=== PATIENT | male | born 1950 | race Caucasian/White ===

== ENCOUNTER 2016-07-27 06:26 | Day surgery (SDC) | payer MEDICARE, BC ==
[2016-07-27] MEDS ORDERED: Lactated Ringers 1,000 ML IV SCH (06:45)
[2016-07-27] MEDS ORDERED: Propofol 200 MG/20 ML SDV IV ONE (08:00)
--- NOTE | 2016-07-27 08:28 | PCM.OPNOTE ---
- General Post-Op/Procedure Note Date of Surgery/Procedure: 07/27/16 Operative Procedure(s): c scope with bx Findings: cecal, ascending colon, rectal polyp sigmoid diverticulosis Pre Op Diagnosis: hx of colon polyp Post-Op Diagnosis: cecal, ascending colon, rectal polyp. sigmoid diverticulosis Anesthesia Technique: MAC Primary Surgeon: Elvin Boyer () Anesthesia Provider: Daniela Ny Pathology: cecal, ascending colon, rectal polyp Complications: None Condition: Good Free Text/Narrative:: see dictation
[2016-07-27 09:38] VITALS: BP 125/71
--- NOTE | 2016-07-27 09:40 | OR ---
DATE OF OPERATION: 07/27/2016 SURGEON: Elvin Boyer MD PROCEDURE PERFORMED: Colonoscopy with cold forceps biopsy. PREOPERATIVE DIAGNOSIS: Personal history of colon polyps. POSTOPERATIVE DIAGNOSIS: Cecal polyp, ascending colon polyp, and rectal polyp. INDICATIONS FOR PROCEDURE: This is a 65-year-old white male, who presents for followup colonoscopy. He has a personal history of colon polyps. He was offered and accepted the same. DESCRIPTION OF OPERATION: After an excellent IV sedation was administered, digital rectal exam was performed. No marked abnormality was noted. Flexible colonoscope was inserted and advanced to the cecum. The prep was excellent. The following findings were noted. In ascending colon and the cecum, a small adenomatous polyp, approximately 5 mm in size, biopsied with cold biopsy forceps and sent for permanent. In the ascending colon, hyperplastic-appearing lesion biopsied and sent for permanent. Transverse colon was unremarkable. Descending colon was unremarkable. The sigmoid demonstrated diffuse diverticulosis, very mild. Rectum, another hyperplastic polyp, approximately 10 cm above the anal verge. This was biopsied with cold biopsy forceps and sent for permanent. Colon was deflated. Scope was removed. The patient tolerated the procedure well and was taken to recovery in good condition. /[id number] /MODL
== END 2016-07-27 09:28 | disposition home or self-care (01) ==
LOC: FB.SDS 06:26
PROVIDERS: ATTEND Surgery
DX: Z12.11 Encounter for screening for malignant neoplasm of colon (principal); D12.0 Benign neoplasm of cecum; K63.5 Polyp of colon; K62.1 Rectal polyp; K57.30 Diverticulosis of large intestine without perforation or abscess without bleeding; K21.9 Gastro-esophageal reflux disease without esophagitis; I10 Essential (primary) hypertension; Z88.0 Allergy status to penicillin; Z79.899 Other long term (current) drug therapy; Z79.82 Long term (current) use of aspirin; E78.5 Hyperlipidemia, unspecified; E55.9 Vitamin D deficiency, unspecified; Z90.49 Acquired absence of other specified parts of digestive tract; Z98.890 Other specified postprocedural states; Z87.891 Personal history of nicotine dependence
CPT/HCPCS: 00810; 45380; 88305; J2704; J7120

== ENCOUNTER 2017-05-22 07:38 | Day surgery (SDC) | payer MEDICARE, BC ==
[2017-05-22] MEDS ORDERED: Lactated Ringers 1,000 ML IV SCH (07:45)
[2017-05-22] MEDS ORDERED: Midazolam 1 MG/ML 2 ML SDV IV ONE (08:30)
[2017-05-22] MEDS ORDERED: Propofol 200 MG/20 ML SDV IV ONE (08:30)
--- NOTE | 2017-05-22 08:50 | PCM.OPNOTE ---
- General Post-Op/Procedure Note Date of Surgery/Procedure: 05/22/17 Operative Procedure(s): c scope with bx Findings: cecal polyp Pre Op Diagnosis: hx of dysplastic polyp of colon Post-Op Diagnosis: cecal polyp Anesthesia Technique: MAC Primary Surgeon: Elvin Boyer Anesthesia Provider: Daniela Ny Pathology: cecal polyp Complications: None Condition: Good Free Text/Narrative:: see dictation
--- NOTE | 2017-05-22 09:25 | OR ---
DATE OF OPERATION: 05/22/2017 SURGEON: Elvin Boyer MD PROCEDURE PERFORMED: Colonoscopy with cold forceps biopsy. PREOPERATIVE DIAGNOSIS: Personal history of dysplastic colon polyp. POSTOPERATIVE DIAGNOSIS: A 2 mm polyp of the cecum. INDICATIONS FOR PROCEDURE: This is a 66-year-old white male who underwent a colonoscopy about 6 months ago, was noted to have a polyp with low-grade dysplasia. A 6-month followup was recommended. He presents now for a followup scope. DESCRIPTION OF PROCEDURE: After an excellent IV sedation was administered, digital rectal exam was performed. No marked abnormality was noted. Flexible colonoscope was inserted and advanced to the cecum without difficulty. The following findings were noted. At the cecum, a small 2 mm lesion was noted, biopsied with cold biopsy forceps. Remainder of the ascending colon was unremarkable. Transverse colon was unremarkable. Descending colon was unremarkable. Sigmoid unremarkable. Rectum and anus unremarkable. Colon was deflated. Scope was removed. The patient tolerated the procedure well, was taken to recovery in good condition. /[id number] /HEIDEL
[2017-05-22 11:43] VITALS: BP 157/81
== END 2017-05-22 09:48 | disposition home or self-care (01) ==
LOC: FB.SDS 07:38
PROVIDERS: ATTEND Surgery
DX: Z12.11 Encounter for screening for malignant neoplasm of colon (principal); K63.5 Polyp of colon; I10 Essential (primary) hypertension; K21.9 Gastro-esophageal reflux disease without esophagitis; Z86.010 Personal history of colon polyps; Z88.0 Allergy status to penicillin; Z79.82 Long term (current) use of aspirin; Z79.899 Other long term (current) drug therapy; E78.5 Hyperlipidemia, unspecified; E55.9 Vitamin D deficiency, unspecified; Z87.891 Personal history of nicotine dependence
CPT/HCPCS: 00811; 45380; 88305; J2250; J2704; J7120

== ENCOUNTER 2018-12-31 16:47 | Emergency (ER) | payer BC, MEDICARE ==
--- NOTE | 2018-12-31 16:51 | EDM.PDOC ---
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 Pt noticed his left distal phalanx is angulated. Excact mech of injury is not known. No active bleed, the nail appears to be fractured next to the nail bed. Pt said, his TD is UPT and due in 5 years. 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 Pt has FROM of his fingers but can not extent the distal phalanx of his right 3rd finger. No N/V/D no C/P no SOB or any other acute med issues. BP 136/68 RR 16 Pulse ox 97% on RA Temp 36.8 Pulse 74 Onset Date: 12/31/18 Onset Time: 16:00 Duration: Minutes: Location: Reports: Upper Extremity, Right (right middle finger) Quality: Reports: Ache, Burning, Dull Severity: Mild Improves with: Reports: Rest Worsens with: Reports: Movement Context: Reports: Trauma (object fell onto his right middle finger. ) Associated Symptoms: Reports: No Other Symptoms - Related Data Allergies Allergy/AdvReac Type Severity Reaction Status Date / Time Penicillins Allergy Cannot Verified 12/31/18 17:26 Remember Home Meds: Home Meds Aspirin [Ecotrin EC] 81 mg PO DAILY 07/26/16 [History] Celecoxib [CeleBREX] 200 mg PO DAILY 07/26/16 [History] Ergocalciferol (Vitamin D2) [Vitamin D2] 2,000 unit PO DAILY 07/26/16 [History] Lisinopril/Hydrochlorothiazide [Lisinopril-Hctz 20-12.5 mg Tab] 1 ea PO DAILY [History] Multivitamin with Minerals [Multiple Vitamin] 1 ea PO DAILY 07/26/16 [History] Alpine-3/DHA/Epa/Fish Oil [Alpine-3 Fish Oil 1,000 MG Sfgl] 1,000 mg PO DAILY [History] Omeprazole 40 mg PO DAILY 07/26/16 [History] Ciprofloxacin [Ciprofloxacin HCl] 500 mg PO BID #20 tab 12/31/18 [Rx] Past Medical History HEENT History: Reports: Impaired Vision Cardiovascular History: Reports: High Cholesterol, Hypertension, Other (See Below) Other Cardiovascular History: VITAMIN D DIFFICIENCY Respiratory History: Reports: Pneumonia, Recurrent, Sleep Apnea, SOB, Other ( See Below) Other Respiratory History: PLEURAL EFFUSION Gastrointestinal History: Reports: Colon Polyp, Diverticulosis, GERD, Other ( See Below) Other Gastrointestinal History: ARNOLD'S ESOPHAGUS WITH ESOPHAGITIS, BILATERAL INGUINAL HERNIA Genitourinary History: Reports: None Musculoskeletal History: Reports: Fracture, Other (See Below) Other Musculoskeletal History: FX RIGHT LEG, DEGENERATIVE JOINT DISEASE, BILATERAL FOOT PAIN, LEFT SHOULDER PAIN, GANGLION CYST Neurological History: Reports: None Psychiatric History: Reports: None Endocrine/Metabolic History: Reports: Obesity/BMI 30+, Vitamin D Deficiency Hematologic History: Reports: None Immunologic History: Reports: None Oncologic (Cancer) History: Reports: None Dermatologic History: Reports: None - Infectious Disease History Infectious Disease History: Reports: Chicken Pox, Measles, Mumps - Past Surgical History Head Surgeries/Procedures: Reports: None HEENT Surgical History: Reports: Adenoidectomy, Naso-Sinus Surgery, Oral Surgery , Tonsillectomy, Other (See Below) Other HEENT Surgeries/Procedures: THROAT AND NASAL RECONSTRUCTION Cardiovascular Surgical History: Reports: None GI Surgical History: Reports: Appendectomy, Colonoscopy, EGD, Hernia, Inguinal, Polypectomy Other GI Surgeries/Procedures: ARNOLD'S ESOPHAGUS, BILATERAL INGUINAL HERNIA Male Surgical History: Reports: None Endocrine Surgical History: Reports: None Neurological Surgical History: Reports: None Musculoskeletal Surgical History: Reports: Arthroscopic Procedure, Carpal Tunnel Other Musculoskeletal Surgeries/Procedures:: ARTHROSCOPIC RIGHT ROTATOR CUFF REPAIR, ARTHRODESIS LEFT SHOULDEr, ORIF OF RIGHT LEG, BILATERAL CARPAL TUNNEL RELEASE Oncologic Surgical History: Reports: None Social & Family History - Caffeine Use Caffeine Use: Reports: Coffee, Soda ED ROS GENERAL - Review of Systems Review Of Systems: See Below Constitutional: Reports: No Symptoms HEENT: Reports: No Symptoms Respiratory: Reports: No Symptoms Cardiovascular: Reports: No Symptoms Endocrine: Reports: No Symptoms GI/Abdominal: Reports: No Symptoms : Reports: No Symptoms Musculoskeletal: Reports: No Symptoms Skin: Reports: Wound (right middle finger) Neurological: Reports: No Symptoms Psychiatric: Reports: No Symptoms Hematologic/Lymphatic: Reports: No Symptoms Immunologic: Reports: No Symptoms ED EXAM, SKIN/RASH Exam: See Below Exam Limited By: No Limitations General Appearance: Alert, WD/WN, Mild Distress Eye Exam: Bilateral Eye: Normal Inspection Ears: Normal External Exam Nose: Normal Inspection Throat/Mouth: Normal Inspection Head: Atraumatic, Normocephalic Neck: Normal Inspection, Supple, Non-Tender Respiratory/Chest: No Respiratory Distress, Lungs Clear, Normal Breath Sounds, Chest Non-Tender Cardiovascular: Normal Peripheral Pulses, Regular Rate, Rhythm Peripheral Pulses: 1+: Brachial (L) GI/Abdominal: Normal Bowel Sounds, Soft, Non-Tender, No Abnormal Bruit, No Mass (Male) Exam: Deferred Rectal (Males) Exam: Deferred Back Exam: Normal Inspection, Full Range of Motion Extremities: No Pedal Edema, Normal Capillary Refill, Limited Range of Motion ( og right finger endphalanx to pain) Neurological: Alert, Oriented, CN II-XII Intact, Normal Cognition, Normal Gait Psychiatric: Normal Affect, Normal Mood Skin: Warm, Dry, Normal Color, No Rash, Other (fracture of proximal nal righ middle finger na) Associated features: Warmth Lymphatic: No Adenopathy Course - Vital Signs Text/Narrative:: 68 y.o.w.m came by himself to the ed after an objet fell onto his right distal 3rd 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 Pt noticed his left distal phalanx is angulated. Excact mech of injury is not known. No active bleed, the nail appears to be fractured next to the nail bed. Pt said, his TD is UPT and due in 5 years. 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 Pt has FROM of his fingers but can not extent the distal phalanx of his right 3rd finger. No N/V/D no C/P no SOB or any other acute med issues. BP 136/68 RR 16 Pulse ox 97% on RA Temp 36.8 Pulse 74 AK: WNWD W M with a right middle finger injury Imaging: impacted transverse/oblique fracture of the distal phalanx of right 3rd finger with dorsal apex angulation Imaging: open Fracture/angulation right distal phalanx of right middle finger with fractured nail. Tx: finger was splinted, Neosporin ointment was applied. Reexam: Improved. Pt stated, he will not f/u with his PMD or Ortho, h will go back to work tomorrow. Plan: D/C'd with instructions Last Recorded V/S: Last Vital Signs Temp 36.3 C 12/31/18 16:50 Pulse 78 12/31/18 16:55 Resp 17 12/31/18 16:55 BP 136/68 12/31/18 16:55 Pulse Ox 97 12/31/18 16:55 - Orders/Labs/Meds Orders: Active Orders 24 hr Category Date Time Status Fingers Third Digit Rt F7 [CR] Stat Exams 12/31/18 16:51 Taken Departure - Departure Time of Disposition: 17:21 Disposition: Home, Self-Care 01 Condition: Good Clinical Impression: Finger fracture, right Qualifiers: Encounter type: initial encounter Finger: middle finger Fracture type: open Phalanx: distal Fracture alignment: displaced Qualified Code(s): S62.632B - Displaced fracture of distal phalanx of right middle finger, initial encounter for open fracture - Discharge Information Prescriptions: Ciprofloxacin [Ciprofloxacin HCl] 500 mg PO BID #20 tab Instructions: Wound Care, Adult, Cast or Splint Care, Adult Referrals: Amador Wilkinson MD [Primary Care Provider] - Mariusz Collazo DO [Physician] - Forms: ED Department Discharge Additional Instructions: Please take Tylenol for pain, please leave the splint in place till see by your orthopedic or hand surgeon in next few days, Please come back if your symptoms get worse acutely - My Orders Last 24 Hours: My Active Orders 12/31/18 16:51 Fingers Third Digit Rt F7 [CR] Stat - Assessment/Plan Last 24 Hours: My Active Orders 12/31/18 16:51 Fingers Third Digit Rt F7 [CR] Stat
[2018-12-31 16:57] VITALS: BP 136/68
== END 2018-12-31 17:35 | disposition home or self-care (01) ==
LOC: FB.ED 16:47
DX: S62.632B Displaced fracture of distal phalanx of right middle finger, initial encounter for open fracture (principal); I10 Essential (primary) hypertension; E78.00 Pure hypercholesterolemia, unspecified; K21.9 Gastro-esophageal reflux disease without esophagitis; Z79.82 Long term (current) use of aspirin; Z79.899 Other long term (current) drug therapy; Z88.0 Allergy status to penicillin; W20.8XXA Other cause of strike by thrown, projected or falling object, initial encounter
CPT/HCPCS: 73140-F7; 99283-25

== ENCOUNTER 2023-08-14 07:49 | Day surgery (SDC) | payer MEDICARE ==
[~2023-08-14 07:49] MED LIST: Sodium Chloride 0.9% 10 ML Syringe FLUSH PRN
[2023-08-14] MEDS ORDERED: Propofol 200 MG/20 ML SDV IV ONE (07:50)
[2023-08-14 08:34] VITALS: BP 127/72; PULSE 69
[2023-08-14] MEDS: Lactated Ringers 1,000 ML IV SCH (09:17)
[2023-08-14] MEDS: Simethicone Drops 40 MG/0.6 ML 30 ML Bottle PO ONE (09:25)
== END 2023-08-14 10:55 | disposition home or self-care (01) ==
LOC: FB.SDS 07:49
PROVIDERS: ATTEND Surgery
DX: Z12.11 Encounter for screening for malignant neoplasm of colon (principal); K57.30 Diverticulosis of large intestine without perforation or abscess without bleeding; K42.9 Umbilical hernia without obstruction or gangrene; I10 Essential (primary) hypertension; E78.5 Hyperlipidemia, unspecified; K21.9 Gastro-esophageal reflux disease without esophagitis; Z87.891 Personal history of nicotine dependence; Z86.010 Personal history of colon polyps; Z80.0 Family history of malignant neoplasm of digestive organs; Z79.899 Other long term (current) drug therapy
CPT/HCPCS: 00812; 99100; A9270; G0105; J2704; J7120